=== PATIENT | male | born 1970 | race Caucasian/White ===

== ENCOUNTER 2017-04-29 19:43 | Emergency (ER) | payer BC, OTHER ==
[~2017-04-29] VITALS: Ht 185.4 cm; Wt 100.3 kg
[2017-04-29 19:48] VITALS: TEMP 36.7; Ht 185.4 cm; Wt 100.3 kg
--- NOTE | 2017-04-29 20:46 | EMERGENCY ROOM VISIT NOTE ---
History Report prepared by Martell: Soumya Walsh Under the Supervision of: Dr. J Carlos Mathews M.D. First contact with patient: 19:50 Chief Complaint: TESTICULAR PAIN Stated Complaint: PAIN IN TESTICLE History of Present Illness The patient is a 47 year old male who presents to the Emergency Room with complaints of constant right sided testicular pain beginning on Sunday, four days ago. The patient states he was playing baseball and when he "twisted" he got a sharp pain in his right testicle. Since Sunday, the patient states his pain has been a constant "pinching" pain. Pain is mild in nature. He denies any fever, blood in urine, penile discharge, abdominal pain, or pain with urination. The patient has a history of a abdominal hernia and a vasectomy. Source of History: patient Onset: four days ago Position: other (right testicular) Quality: sharp Timing: constant Associated Symptoms: No abdominal pain, No urinary symptoms Review of Systems See HPI for pertinent positives and negatives. A total of ten systems were reviewed and were otherwise negative. Past Medical & Surgical Surgical Problems: (1) H/O vasectomy Family History Patient reports no known family medical history. Social History Smoking Status: Never Smoker Marital Status: Housing Status: lives with family Occupation Status: employed Current/Historical Medications No Active Prescriptions or Reported Meds Allergies Coded Allergies: No Known Allergies (Unverified , 04/29/17) Physical Exam Vital Signs Date Time Temp Pulse Resp B/P (MAP) Pulse Ox O2 Delivery O2 Flow Rate FiO2 04/29/17 22:18 68 20 118/78 98 04/29/17 21:18 64 20 121/80 99 Room Air 04/29/17 19:48 36.7 77 18 141/87 96 Room Air Physical Exam .Physical Exam GENERAL: He is oriented to person, place, and time. He appears well-developed and well-nourished. He does not appear distressed. ____ HENT: Exam performed. Head: Normocephalic and atraumatic. Right Ear: External ear normal. No mastoid tenderness. Left Ear: External ear normal. No mastoid tenderness. Mouth/Throat: The oropharynx is clear and moist. No trismus in the jaw. No dental abscesses or uvula swelling. No oropharyngeal exudate or tonsillar abscesses. ____ EYES: Conjunctivae and EOM are normal. Pupils are equal, round, and reactive to light. Right eye exhibits no discharge. Left eye exhibits no discharge. No scleral icterus. ____ NECK: Normal range of motion. Neck supple. No JVD present. No spinous process tenderness present. No carotid bruit present. No rigidity. No tracheal deviation and normal range of motion present. No Brudzinski's sign and no Kernig 's sign noted. ____ CV: Normal rate, regular rhythm, normal heart sounds and intact distal pulses. There is no peripheral edema. Palpable radial pulses bue. ____ PULM/CHEST: Effort normal and breath sounds normal. No respiratory distress. No stridor. He has no wheezes. He has no rales. Chest Wall: He exhibits no tenderness. ____ ABD: The abdomen is soft. Bowel sounds are normal. He has no distension. No mass is present. There is no tenderness. There is no rebound, no guarding, no Lopez's sign and no tenderness at McBurney's point. Rovsig negative MUSC/SKEL: Normal range of motion. There is no peripheral edema, tenderness or deformity. LYMPH: No cervical adenopathy. ____ NEURO: He is alert and oriented to person, place, and time. He has normal strength. No cranial nerve deficit or sensory deficit. Coordination and gait normal. GCS eye subscore is 4. GCS verbal subscore is 5. GCS motor subscore is 6. Cerebellar tests wnl. ____ SKIN: Skin is warm and dry. He is not diaphoretic. ____ PSYCH: He has a normal mood and affect. His behavior is normal. Judgment and thought content normal. ____ : No pain on palpation on either testicle, penis is circumcised, no lesion or discharge, no inguinal hernia bilaterally. Medical Decision & Procedures ER Provider Diagnostic Interpretation: Radiology results as stated below per my review and radiologist interpretation: ULTRASOUND TESTES AND SCROTUM FINDINGS: The testes are normal in size and homogeneous in echotexture. The right testis measures 4.2 x 2.3 x 3.2 cm and the left testis measures 4.0 x 2.9 x 3.2 cm. No intratesticular mass is seen. Testicular blood flow is normal and symmetric. Normal Doppler waveforms are identified in both testes. The epididymal heads are normal in appearance. The right epididymal head measures 1.4 cm in length and the left epididymal head measures 0.9 cm in length. There are small bilateral hydroceles, minimally complex on the left. A small left-sided varicocele measures up to 3 mm. A scrotal kathy is noted on the left. IMPRESSION: 1. Unremarkable sonographic appearance of the testes. 2. There are small bilateral hydroceles, minimally complex on the left. 3. There is a small left-sided varicocele. Electronically signed by: Dada Seth M.D. Laboratory Results Test 04/29/17 20:10 Urine Color YELLOW Urine Appearance CLEAR (CLEAR) Urine pH 5.5 (4.5-7.5) Urine Specific [place] 1.028 (1.000-1.030) Urine Protein NEG (NEG) Urine Glucose (UA) NEG (NEG) Urine Ketones TRACE (NEG) Urine Occult Blood NEG (NEG) Urine Nitrite NEG (NEG) Urine Bilirubin NEG (NEG) Urine Urobilinogen NEG (NEG) Urine Leukocyte Esterase NEG (NEG) Laboratory results reviewed by mt ED Course 1958: The patient was evaluated in room C3. A complete history and physical exam was performed. 2154: Vital signs stable. Ultrasound shows bilateral hydroceles and varicocele, urine negative. The patient will follow up with urology. I reevaluated the patient. Discussed results and discharge instructions: He verbalized understanding and agreement. The patient is ready for discharge. DISCHARGE - Plan of care discussed with family and questions answered. The family was given both verbal and printed discharge instructions. The family verbalized understanding and ability to comply. The family is to seek outpatient follow up as noted in the discharge instructions. The family verbalized understanding and ability to comply. The family is discharged in stable condition. The family was instructed to return for worsening symptoms. Medical Decision Ultrasound shows bilateral hydroceles and varicocele, urine negative. The patient will follow up with urology. Medication Reconcilliation Current Medication List: was personally reviewed by me Blood Pressure Screening Patient's blood pressure: Normal blood pressure Impression Primary Impression: Varicocele Additional Impression: Hydrocele in adult Scribe Attestation The scribe's documentation has been prepared under my direction and personally reviewed by me in its entirety. I confirm that the note above accurately reflects all work, treatment, procedures, and medical decision making performed by me. The chart was completed utilizing [employer] Speech voice recognition software. Grammatical errors, random word insertions, pronoun errors, and incomplete sentences are an occasional consequence of this system due to software limitations, ambient noise, and hardware issues. Any formal questions or concerns about the content, text, or information contained within the body of this dictation should be directly addressed to the physician for clarification. Departure Information Dispostion Home / Self-Care Prescriptions No Active Prescriptions or Reported Meds Referrals Vianey Galloway D.O. (PCP) Forms HOME CARE DOCUMENTATION FORM, IMPORTANT VISIT INFORMATION, WORK / SCHOOL INSTRUCTIONS Patient Instructions ED Hydrocele Type Not Specified, ED Varicocele, My [facility] Health Problem Qualifiers
--- NOTE | 2017-04-29 21:16 | DIAGNOSTIC IMAGING REPORT ---
ULTRASOUND TESTES AND SCROTUM CLINICAL HISTORY: Right testicular pain. COMPARISON STUDY: No priors. TECHNIQUE: Real-time, grayscale, and color Doppler sonography of the testes and scrotum is performed. Images are reviewed in the transverse and longitudinal planes. FINDINGS: The testes are normal in size and homogeneous in echotexture. The right testis measures 4.2 x 2.3 x 3.2 cm and the left testis measures 4.0 x 2.9 x 3.2 cm. No intratesticular mass is seen. Testicular blood flow is normal and symmetric. Normal Doppler waveforms are identified in both testes. The epididymal heads are normal in appearance. The right epididymal head measures 1.4 cm in length and the left epididymal head measures 0.9 cm in length. There are small bilateral hydroceles, minimally complex on the left. A small left-sided varicocele measures up to 3 mm. A scrotal kathy is noted on the left. IMPRESSION: 1. Unremarkable sonographic appearance of the testes. 2. There are small bilateral hydroceles, minimally complex on the left. 3. There is a small left-sided varicocele. Electronically signed by: Dada Seth M.D. 04/29/2017 9:14 PM Dictated Date/Time: 04/29/2017 9:12 PM
[2017-04-29 22:18] VITALS: BP 118/78; PULSE 68; O2SAT 98
== END 2017-04-29 22:21 | disposition home or self-care (01) ==
LOC: C.EDB 19:44 → C.EDC 22:21
DX: I86.1 Scrotal varices (principal); N43.3 Hydrocele, unspecified; Z98.52 Vasectomy status